=== PATIENT | male | born 1930 | race Caucasian/White ===

== ENCOUNTER 2016-07-14 10:56 | Emergency (ER) | payer OTHER ==
[~2016-07-14] VITALS: Ht 182.9 cm; Wt 73.5 kg
[~2016-07-14 10:56] MED LIST: AMIODARONE200 MG PO; BISCOLAX10 MG RC; DIGOXIN0.125 M1 PO; ELIQUIS5 MG PO; FERROUS SULFAT325 M2 PO; FLO4 PO; LOPERAMIDE2 MG PO; LOPRESSOR100 MG PO; METOPROLOL TART25 M1 PO; MILK OF MA400 MG/5 M PO; RESTORIL15 MG PO; TYLENOL325 MG PO
[2016-07-14 12:19] LABS: BASOPHIL % 0.2 % (0-2); PLATELET COUNT 372 x10^3mcL (130-400); RED CELL DISTRIBUTION WIDTH 13.7 % (11.5-14.5)
[2016-07-14 12:33] LABS: CALCIUM 8.1 mg/dL (8.5-10.1); CARBON DIOXIDE 26.9 mmol/L (21-32); CHLORIDE SERUM 102 mmol/L (98-107); CREATININE SERUM 0.8 mg/dL (0.7-1.3); GLUCOSE SERUM 123 mg/dL (74-106); SODIUM SERUM 134 mmol/L (136-145)
[2016-07-14 12:37] LABS: ALKALINE PHOSPHATASE 73 U/L (46-116); ALT/SGPT 249 U/L (16-63); AST/SGOT 173 U/L (15-37); BILIRUBIN TOTAL 0.81 mg/dL (0.20-1.00); HDL CHOLESTEROL 53 mg/dL (40-60); PHOSPHOROUS 2.1 mg/dL (2.5-4.9); TOTAL PROTEIN, SERUM 6.7 g/dL (6.4-8.2); URIC ACID 1.7 mg/dL (3.5-7.2)
[2016-07-14 12:38] LABS: ALBUMIN 2.8 g/dL (3.4-5.0); CHOLESTEROL 112 mg/dL (<200)
[2016-07-14 15:02] VITALS: BP 141/89
== END 2016-07-14 15:00 | disposition short-term general hospital (02) ==
LOC: ED 10:56
PROVIDERS: Emergency Medicine
DX: S06.300A Unspecified focal traumatic brain injury without loss of consciousness, initial encounter (principal); I11.0 Hypertensive heart disease with heart failure; I48.91 Unspecified atrial fibrillation; W18.30XA Fall on same level, unspecified, initial encounter; Y93.89 Activity, other specified; Y99.8 Other external cause status; Y92.89 Other specified places as the place of occurrence of the external cause
CPT/HCPCS: 83880; Q0092

== ENCOUNTER 2017-03-07 08:49 | Observation (INO) | payer OTHER ==
[~2017-03-07] VITALS: Ht 182.9 cm; Wt 70.3 kg
[2017-03-07 08:57] VITALS: Ht 182.9 cm; Wt 70.3 kg
[2017-03-07 10:12] LABS: BASOPHIL % 0.9 % (0-2); PLATELET COUNT 390 x10^3mcL (130-400); RED CELL DISTRIBUTION WIDTH 13.5 % (11.5-14.5)
[2017-03-07 10:21] LABS: CALCIUM 8.1 mg/dL (8.5-10.1); CARBON DIOXIDE 28.7 mmol/L (21-32); CHLORIDE SERUM 106 mmol/L (98-107); GLUCOSE SERUM 80 mg/dL (74-106); POTASSIUM SERUM 3.4 mmol/L (3.5-5.1); SODIUM SERUM 141 mmol/L (136-145)
[2017-03-07 10:25] LABS: ALKALINE PHOSPHATASE 47 U/L (46-116); ALT/SGPT 13 U/L (16-63); AST/SGOT 11 U/L (15-37); BILIRUBIN TOTAL 0.4 mg/dL (0.20-1.00); HDL CHOLESTEROL 43 mg/dL (40-60); TOTAL PROTEIN, SERUM 7.2 g/dL (6.4-8.2)
[2017-03-07 10:27] LABS: CHOLESTEROL 127 mg/dL (<200)
[2017-03-07] MEDS ORDERED: COLACE100 MG PO (11:24)
[2017-03-07] MEDS ORDERED: FLUDROCORTISON0.1 MG PO (11:24)
[2017-03-07] MEDS ORDERED: [UNRECOGNIZED DRUG - OTHER] PO (11:24)
[2017-03-07] MEDS ORDERED: FINASTERIDE5 M1 PO (11:24)
[2017-03-07] MEDS ORDERED: MIDODRINE HCL10 MG PO (11:25)
[2017-03-07] MEDS ORDERED: C500500 MG PO (11:25)
[2017-03-07] MEDS ORDERED: SULFAMETHOXAZOL1 PO1 (11:25)
[2017-03-07] MEDS ORDERED: ZOFRAN8 MG PO (11:26)
[2017-03-07] MEDS ORDERED: HYDROXYZINE50 M1 PO (11:26)
[2017-03-07] MEDS ORDERED: MECLIZINE HYDRO25 M1 PO (11:26)
[2017-03-07] MEDS ORDERED: VITAMIN-D1000 IU PO (11:26)
[2017-03-07] MEDS ORDERED: ULTRAM50 MG PO (11:27)
[2017-03-07 12:51] LABS: T3 TOTAL 0.63 ng/mL
[2017-03-07 13:04] LABS: FREE T4 1.41 ng/dL (0.76-1.46); FREE THYROXINE INDEX 3.8 ug/dL (1.4-4.5); T4(THYROXINE) 9.5 ug/dL (4.7-13.3)
[2017-03-07 13:11] VITALS: BP 140/66
[2017-03-07 13:21] LABS: MAGNESIUM 2.1 mg/dL (1.8-2.4); PHOSPHOROUS 3.3 mg/dL (2.5-4.9)
[2017-03-07 13:26] LABS: CHOLESTEROL/HDL RATIO 2.9
[2017-03-07] MEDS ORDERED: HYDROXYZINE HYD25 MG PO (13:32)
[2017-03-07 17:28] LABS: microscopic required? YES
[2017-03-07 17:30] LABS: urine erythrocyte TRACE (NEGATIVE)
[2017-03-07 17:35] VITALS: BP 133/76
[2017-03-07 20:50] VITALS: BP 137/80
[2017-03-08 05:38] VITALS: BP 151/78
[2017-03-08 08:36] VITALS: BP 107/65
[2017-03-08 12:57] VITALS: BP 136/72
[2017-03-08] MEDS ORDERED: LEVAQUIN750 MG PO (15:52)
[2017-03-08] MEDS ORDERED: LAC PO (15:53)
[2017-03-08] MEDS ORDERED: ASPIR 8181 MG PO (15:54)
[2017-03-08] MEDS ORDERED: PROTONIX20 MG PO (16:07)
[2017-03-08 16:30] VITALS: BP 136/72
== END 2017-03-08 17:35 | disposition home or self-care (01) | DRG 392 ==
LOC: ED 08:49 → DU 11:14
PROVIDERS: Emergency Medicine; Family Medicine
DX: K21.9 Gastro-esophageal reflux disease without esophagitis (principal); E44.0 Moderate protein-calorie malnutrition; N39.0 Urinary tract infection, site not specified; B96.4 Proteus (mirabilis) (morganii) as the cause of diseases classified elsewhere; G90.9 Disorder of the autonomic nervous system, unspecified; E87.6 Hypokalemia; D64.9 Anemia, unspecified; I95.9 Hypotension, unspecified; R32 Unspecified urinary incontinence; I48.2 Chronic atrial fibrillation; Z79.01 Long term (current) use of anticoagulants; Z85.46 Personal history of malignant neoplasm of prostate; Z92.3 Personal history of irradiation; Z16.12 Extended spectrum beta lactamase (ESBL) resistance; Z16.24 Resistance to multiple antibiotics
CPT/HCPCS: 83880; 84439; 87804; G0378; J0696; J7030; J7040; Q0092

== ENCOUNTER 2017-07-12 08:48 | Inpatient (IN) | payer OTHER ==
[~2017-07-12] VITALS: Ht 182.9 cm; Wt 73.6 kg
[~2017-07-12 08:48] MED LIST changes: +ASPIR 8181 MG PO; +C500500 MG PO; +COLACE100 MG PO; +FINASTERIDE5 M1 PO; +FLUDROCORTISON0.1 MG PO; +HYDROXYZINE HYD25 MG PO; +HYDROXYZINE50 M1 PO; +LAC PO; +LEVAQUIN750 MG PO; +MECLIZINE HYDRO25 M1 PO; +MIDODRINE HCL10 MG PO; +PROTONIX20 MG PO; +SULFAMETHOXAZOL1 PO1; +ULTRAM50 MG PO; +VITAMIN-D1000 IU PO; +ZOFRAN8 MG PO; +[UNRECOGNIZED DRUG - OTHER] PO
[2017-07-12 09:43] LABS: CALCIUM 8.7 mg/dL (8.5-10.1); CARBON DIOXIDE 28.1 mmol/L (21-32); CHLORIDE SERUM 100 mmol/L (98-107); CREATININE SERUM 0.9 mg/dL (0.7-1.3); GLUCOSE SERUM 98 mg/dL (74-106); POTASSIUM SERUM 3.7 mmol/L (3.5-5.1); SODIUM SERUM 135 mmol/L (136-145)
[2017-07-12 09:45] LABS: PLATELET COUNT 249 x10^3mcL (130-400); RED CELL DISTRIBUTION WIDTH 13.1 % (11.5-14.5)
[2017-07-12 09:47] LABS: BASOPHIL % 0 % (0-2)
[2017-07-12 09:48] LABS: ALBUMIN 3.9 g/dL (3.4-5.0); ALKALINE PHOSPHATASE 58 U/L (46-116); ALT/SGPT 14 U/L (16-63); AST/SGOT 19 U/L (15-37); BILIRUBIN TOTAL 0.8 mg/dL (0.20-1.00); TOTAL PROTEIN, SERUM 8.1 g/dL (6.4-8.2)
[2017-07-12] MEDS ORDERED: ARNICA120 ML (09:51)
[2017-07-12] MEDS ORDERED: PROCTOSOL-HC2.5% RC (09:51)
[2017-07-12] MEDS ORDERED: BENADRYL ALLERG25 M1 PO (09:51)
[2017-07-12] MEDS ORDERED: MUCINEX600 MG PO (09:51)
[2017-07-12] MEDS ORDERED: LOPERAMIDE1 MG/5 M1 PO (09:52)
[2017-07-12] MEDS ORDERED: APAP500 MG PO (09:52)
[2017-07-12] MEDS ORDERED: ZOF4 PO (09:52)
[2017-07-12] MEDS ORDERED: TRAMADOL HCL50 MG PO (09:52)
[2017-07-12] MEDS ORDERED: BONINE25 MG PO (09:52)
[2017-07-12 11:42] LABS: CHOLESTEROL/HDL RATIO 2.9; MAGNESIUM 2.1 mg/dL (1.8-2.4); PHOSPHOROUS 3.4 mg/dL (2.5-4.9)
[2017-07-12 11:48] LABS: T3 TOTAL 0.78 ng/mL
[2017-07-12 11:51] LABS: FREE T4 1.18 ng/dL (0.76-1.46); FREE THYROXINE INDEX 3.2 ug/dL (1.4-4.5); T4(THYROXINE) 9.3 ug/dL (4.7-13.3)
[2017-07-12 12:19] VITALS: BP 131/77
[2017-07-12 12:37] VITALS: BP 131/77
[2017-07-12 14:20] VITALS: BP 126/96
[2017-07-12 16:30] VITALS: BP 119/67
[2017-07-12 17:45] VITALS: Ht 182.9 cm; Wt 73.6 kg
[2017-07-12 20:44] VITALS: BP 119/65
[2017-07-13 05:57] VITALS: BP 145/85
[2017-07-13 06:23] LABS: CALCIUM 8.5 mg/dL (8.5-10.1); CARBON DIOXIDE 25.3 mmol/L (21-32); CHLORIDE SERUM 102 mmol/L (98-107); CREATININE SERUM 0.8 mg/dL (0.7-1.3); GLUCOSE SERUM 167 mg/dL (74-106); POTASSIUM SERUM 4.1 mmol/L (3.5-5.1); SODIUM SERUM 135 mmol/L (136-145)
[2017-07-13 06:29] LABS: BASOPHIL % 0.2 % (0-2); PLATELET COUNT 211 x10^3mcL (130-400); RED CELL DISTRIBUTION WIDTH 13.2 % (11.5-14.5)
[2017-07-13 07:52] LABS: UA SPECIFIC GRAVITY >=1.030 (1.005-1.035); microscopic required? YES; urine erythrocyte NEGATIVE (NEGATIVE)
[2017-07-13 09:30] VITALS: BP 134/62
[2017-07-13 14:14] VITALS: BP 133/71
[2017-07-13 16:53] VITALS: BP 121/65
[2017-07-13 20:45] VITALS: BP 126/63
[2017-07-14 04:10] VITALS: BP 127/70
[2017-07-14 06:08] VITALS: BP 137/76
[2017-07-14 07:00] LABS: CALCIUM 8.1 mg/dL (8.5-10.1); CHLORIDE SERUM 105 mmol/L (98-107); CREATININE SERUM 0.9 mg/dL (0.7-1.3); GLUCOSE SERUM 145 mg/dL (74-106); POTASSIUM SERUM 3.8 mmol/L (3.5-5.1); SODIUM SERUM 137 mmol/L (136-145)
[2017-07-14 08:29] LABS: PLATELET COUNT 200 x10^3mcL (130-400); RED CELL DISTRIBUTION WIDTH 13.2 % (11.5-14.5)
[2017-07-14 08:30] VITALS: BP 118/73
[2017-07-14 11:29] LABS: ATYPICAL LYMPH 2 %; BAND NEUTROPHIL 11 % (0-10); BASOPHIL 0 % (0-2); MONOCYTE 4 % (0-7); SEGMENTED NEUTROPHILS 76 % (37-75)
[2017-07-14 11:30] LABS: PLATELET MORPHOLOGY PLATELETS INCREASED; rbc morphology (normal/abnorm) NORMAL (NORMAL)
[2017-07-14 17:02] VITALS: BP 110/68
[2017-07-14 22:22] VITALS: BP 122/63
[2017-07-15 06:28] VITALS: BP 156/79
[2017-07-15 08:00] VITALS: BP 167/84
[2017-07-15 10:16] VITALS: BP 137/69
[2017-07-15 18:02] VITALS: BP 149/73
[2017-07-15 20:28] VITALS: BP 138/70
[2017-07-16 04:41] VITALS: BP 141/76
[2017-07-16 05:51] LABS: BASOPHIL % 0.2 % (0-2); PLATELET COUNT 242 x10^3mcL (130-400); RED CELL DISTRIBUTION WIDTH 13.2 % (11.5-14.5)
[2017-07-16 08:38] VITALS: BP 146/75
[2017-07-16 17:19] VITALS: BP 153/78
[2017-07-16 20:57] VITALS: BP 123/68
[2017-07-17 05:27] VITALS: BP 148/82
[2017-07-17 09:07] VITALS: BP 149/74
[2017-07-17 18:18] VITALS: BP 134/71
[2017-07-17 20:36] VITALS: BP 131/68
[2017-07-18 06:00] VITALS: BP 147/83
[2017-07-18 06:13] LABS: CARBON DIOXIDE 28.8 mmol/L (21-32); CHLORIDE SERUM 108 mmol/L (98-107); CREATININE SERUM 0.7 mg/dL (0.7-1.3); GLUCOSE SERUM 133 mg/dL (74-106); MAGNESIUM 2.5 mg/dL (1.8-2.4); PHOSPHOROUS 3.1 mg/dL (2.5-4.9); POTASSIUM SERUM 4.4 mmol/L (3.5-5.1); SODIUM SERUM 131 mmol/L (136-145)
[2017-07-18 07:09] LABS: BASOPHIL % 0.1 % (0-2); PLATELET COUNT 268 x10^3mcL (130-400)
[2017-07-18 08:28] VITALS: BP 130/80
[2017-07-18 09:18] VITALS: BP 130/80
[2017-07-18 16:30] VITALS: BP 151/75
[2017-07-18 20:19] VITALS: BP 120/67
[2017-07-19 05:59] VITALS: BP 146/88
[2017-07-19 06:45] LABS: BASOPHIL % 0.1 % (0-2); PLATELET COUNT 292 x10^3mcL (130-400)
[2017-07-19 06:51] LABS: CALCIUM 8.1 mg/dL (8.5-10.1); CARBON DIOXIDE 24.9 mmol/L (21-32); CHLORIDE SERUM 104 mmol/L (98-107); CREATININE SERUM 0.7 mg/dL (0.7-1.3); GLUCOSE SERUM 133 mg/dL (74-106); MAGNESIUM 2.4 mg/dL (1.8-2.4); PHOSPHOROUS 3.1 mg/dL (2.5-4.9); POTASSIUM SERUM 4.3 mmol/L (3.5-5.1); SODIUM SERUM 136 mmol/L (136-145)
[2017-07-19] MEDS ORDERED: LEVAQUIN750 MG PO (07:15)
[2017-07-19] MEDS ORDERED: LAC PO (07:16)
[2017-07-19 09:02] VITALS: BP 114/75
[2017-07-19 09:46] VITALS: BP 114/75
[2017-07-19] MEDS ORDERED: MEDDP PO (09:57)
== END 2017-07-19 13:08 | DRG 177 ==
LOC: ED 08:48 → MU 09:46 → DU 09:46 → MU 07-14 14:45
PROVIDERS: Emergency Medicine; Family Medicine; Family Medicine Sports Medicine
DX: J69.0 Pneumonitis due to inhalation of food and vomit (principal); J96.01 Acute respiratory failure with hypoxia; K85.90 Acute pancreatitis without necrosis or infection, unspecified; N17.0 Acute kidney failure with tubular necrosis; G93.41 Metabolic encephalopathy; G61.0 Guillain-Barre syndrome; J44.1 Chronic obstructive pulmonary disease with (acute) exacerbation; E87.1 Hypo-osmolality and hyponatremia; J44.0 Chronic obstructive pulmonary disease with (acute) lower respiratory infection; I42.9 Cardiomyopathy, unspecified; I11.0 Hypertensive heart disease with heart failure; I50.9 Heart failure, unspecified; I95.1 Orthostatic hypotension; Z22.322 Carrier or suspected carrier of Methicillin resistant Staphylococcus aureus; I48.0 Paroxysmal atrial fibrillation; J20.9 Acute bronchitis, unspecified; E83.41 Hypermagnesemia; G47.00 Insomnia, unspecified
CPT/HCPCS: 36600; 83880; 84439; 94150; 97110-GP; 97116-GP; 97530-GP; J0696; J1956; J2920; J2930; J3010; J3475; J3490; J7030; J7040; J7613; J7620; J7644; Q0092; Q0163

== ENCOUNTER 2017-09-15 19:56 | Emergency (ER) | payer OTHER ==
[~2017-09-15] VITALS: Ht 182.9 cm; Wt 78.5 kg
[~2017-09-15 19:56] MED LIST changes: +APAP500 MG PO; +ARNICA120 ML; +BENADRYL ALLERG25 M1 PO; +BONINE25 MG PO; +LOPERAMIDE1 MG/5 M1 PO; +MEDDP PO; +MUCINEX600 MG PO; +PROCTOSOL-HC2.5% RC; +TRAMADOL HCL50 MG PO; +ZOF4 PO
[2017-09-15 20:27] VITALS: Ht 182.9 cm; Wt 78.5 kg
[2017-09-15 22:52] VITALS: BP 147/79
== END 2017-09-15 22:52 | disposition home or self-care (01) ==
LOC: ED 19:56
DX: S80.11XA Contusion of right lower leg, initial encounter (principal); S50.01XA Contusion of right elbow, initial encounter; I11.0 Hypertensive heart disease with heart failure; I50.9 Heart failure, unspecified; I48.91 Unspecified atrial fibrillation; W01.0XXA Fall on same level from slipping, tripping and stumbling without subsequent striking against object, initial encounter; Y93.89 Activity, other specified; Y92.89 Other specified places as the place of occurrence of the external cause; Y99.8 Other external cause status
CPT/HCPCS: 90715

== ENCOUNTER 2018-02-19 13:51 | Inpatient (IN) | payer OTHER ==
[~2018-02-19] VITALS: Ht 182.9 cm; Wt 73.5 kg
[~2018-02-19 13:51] MED LIST changes: +BAYER ASPIRIN R81 MG PO; +BD LACTINEX1.4 MG PO; +BENADRYL ITCH103 ML TP; +GERI-LANTA355 ML PO; +LOPERAMIDE HCL2 MG PO; +MECLIZINE HYD12.5 MG PO; +PHARMASSURE VI500 MG PO; +ZYR10 PO
[2018-02-19 15:09] LABS: PLATELET COUNT 286 x10^3mcL (130-400); RED CELL DISTRIBUTION WIDTH 13.4 % (11.5-14.5)
[2018-02-19 15:13] LABS: CALCIUM 8.9 mg/dL (8.5-10.1); CARBON DIOXIDE 26.2 mmol/L (21-32); CHLORIDE SERUM 101 mmol/L (98-107); GLUCOSE SERUM 119 mg/dL (74-106); POTASSIUM SERUM 3.5 mmol/L (3.5-5.1); SODIUM SERUM 135 mmol/L (136-145)
[2018-02-19 15:17] LABS: ALKALINE PHOSPHATASE 51 U/L (46-116); ALT/SGPT 12 U/L (16-63); AST/SGOT 9 U/L (15-37); BILIRUBIN TOTAL 0.7 mg/dL (0.20-1.00); LIPASE 77 IU/L (73-393); TOTAL PROTEIN, SERUM 6.9 g/dL (6.4-8.2)
[2018-02-19 15:21] LABS: ALBUMIN 2.9 g/dL (3.4-5.0)
[2018-02-19 15:28] LABS: BAND NEUTROPHIL 2 % (0-10); BASOPHIL 0 % (0-2); MONOCYTE 6 % (0-7); PLATELET MORPHOLOGY PLATELETS DECREASED; SEGMENTED NEUTROPHILS 88 % (37-75); rbc morphology (normal/abnorm) ABNORMAL (NORMAL)
[2018-02-19 18:51] VITALS: BP 138/71
[2018-02-19 21:12] VITALS: BP 115/76
[2018-02-20 07:17] VITALS: BP 115/81
[2018-02-20 07:46] LABS: ALKALINE PHOSPHATASE 56 U/L (46-116); AST/SGOT 8 U/L (15-37); BILIRUBIN TOTAL 0.5 mg/dL (0.20-1.00); CALCIUM 7.9 mg/dL (8.5-10.1); CARBON DIOXIDE 23.8 mmol/L (21-32); CHLORIDE SERUM 104 mmol/L (98-107); CREATININE SERUM 0.8 mg/dL (0.7-1.3); GLUCOSE SERUM 103 mg/dL (74-106); POTASSIUM SERUM 3.1 mmol/L (3.5-5.1); SODIUM SERUM 137 mmol/L (136-145)
[2018-02-20 07:55] LABS: ALBUMIN 2.4 g/dL (3.4-5.0); TOTAL PROTEIN, SERUM 6.1 g/dL (6.4-8.2)
[2018-02-20 08:56] LABS: ALT/SGPT 12 U/L (16-63)
[2018-02-20 13:24] VITALS: BP 121/77
[2018-02-20 16:45] VITALS: BP 121/88
[2018-02-20 20:55] VITALS: BP 118/78
[2018-02-21 05:45] VITALS: BP 110/71
[2018-02-21 06:44] LABS: ALKALINE PHOSPHATASE 43 U/L (46-116); ALT/SGPT 11 U/L (16-63); AST/SGOT 8 U/L (15-37); BILIRUBIN TOTAL 0.3 mg/dL (0.20-1.00); CALCIUM 7.9 mg/dL (8.5-10.1); CARBON DIOXIDE 24.1 mmol/L (21-32); CHLORIDE SERUM 106 mmol/L (98-107); CREATININE SERUM 0.8 mg/dL (0.7-1.3); GLUCOSE SERUM 104 mg/dL (74-106); POTASSIUM SERUM 3.4 mmol/L (3.5-5.1); SODIUM SERUM 137 mmol/L (136-145)
[2018-02-21 06:49] LABS: ALBUMIN 2.3 g/dL (3.4-5.0); TOTAL PROTEIN, SERUM 5.7 g/dL (6.4-8.2)
[2018-02-21 10:06] VITALS: BP 11/64; BP 111/64
[2018-02-21 12:26] VITALS: BP 118/81
[2018-02-21 17:17] VITALS: BP 117/77
[2018-02-21 20:59] VITALS: BP 119/68
[2018-02-22 05:17] VITALS: BP 132/94
[2018-02-22 06:19] LABS: ALKALINE PHOSPHATASE 41 U/L (46-116); ALT/SGPT 10 U/L (16-63); AST/SGOT 6 U/L (15-37); BILIRUBIN TOTAL 0.35 mg/dL (0.20-1.00); CALCIUM 7.7 mg/dL (8.5-10.1); CARBON DIOXIDE 25.4 mmol/L (21-32); CHLORIDE SERUM 105 mmol/L (98-107); CREATININE SERUM 0.8 mg/dL (0.7-1.3); GLUCOSE SERUM 101 mg/dL (74-106); MAGNESIUM 2.1 mg/dL (1.8-2.4); POTASSIUM SERUM 3.6 mmol/L (3.5-5.1); SODIUM SERUM 131 mmol/L (136-145)
[2018-02-22 06:51] LABS: BASOPHIL % 0.5 % (0-2); PLATELET COUNT 358 x10^3mcL (130-400); RED CELL DISTRIBUTION WIDTH 12.5 % (11.5-14.5)
[2018-02-22 06:57] LABS: ALBUMIN 2.4 g/dL (3.4-5.0); TOTAL PROTEIN, SERUM 5.7 g/dL (6.4-8.2)
[2018-02-22 09:54] VITALS: BP 126/80
[2018-02-22 12:59] VITALS: BP 120/75
[2018-02-22 13:34] VITALS: Ht 182.9 cm; Wt 73.5 kg
[2018-02-22 18:38] VITALS: BP 127/87
[2018-02-22 20:48] VITALS: BP 123/79
[2018-02-23 05:39] VITALS: BP 135/73
[2018-02-23 06:12] LABS: ALKALINE PHOSPHATASE 33 U/L (46-116); ALT/SGPT 11 U/L (16-63); AST/SGOT 12 U/L (15-37); BILIRUBIN TOTAL 0.3 mg/dL (0.20-1.00); CALCIUM 8.1 mg/dL (8.5-10.1); CARBON DIOXIDE 25.6 mmol/L (21-32); CHLORIDE SERUM 105 mmol/L (98-107); CREATININE SERUM 0.8 mg/dL (0.7-1.3); GLUCOSE SERUM 101 mg/dL (74-106); POTASSIUM SERUM 4.2 mmol/L (3.5-5.1); SODIUM SERUM 138 mmol/L (136-145)
[2018-02-23 06:13] LABS: ALBUMIN 2.5 g/dL (3.4-5.0); TOTAL PROTEIN, SERUM 5.7 g/dL (6.4-8.2)
[2018-02-23 09:37] VITALS: BP 133/74
[2018-02-23 13:28] VITALS: BP 125/66
[2018-02-23 17:06] VITALS: BP 124/77
[2018-02-23 20:55] VITALS: BP 120/69
[2018-02-24 05:21] VITALS: BP 130/93
[2018-02-24 07:45] LABS: ALKALINE PHOSPHATASE 31 U/L (46-116); ALT/SGPT 16 U/L (16-63); AST/SGOT 21 U/L (15-37); BILIRUBIN TOTAL 0.3 mg/dL (0.20-1.00); CALCIUM 8.1 mg/dL (8.5-10.1); CARBON DIOXIDE 24.5 mmol/L (21-32); CHLORIDE SERUM 102 mmol/L (98-107); CREATININE SERUM 0.8 mg/dL (0.7-1.3); GLUCOSE SERUM 97 mg/dL (74-106); POTASSIUM SERUM 3.9 mmol/L (3.5-5.1); SODIUM SERUM 135 mmol/L (136-145)
[2018-02-24 07:47] LABS: ALBUMIN 2.4 g/dL (3.4-5.0); TOTAL PROTEIN, SERUM 5.8 g/dL (6.4-8.2)
[2018-02-24 09:57] VITALS: BP 106/73
[2018-02-24] MEDS ORDERED: METOPROLOL TART25 M1 PO (10:09)
[2018-02-24] MEDS ORDERED: FLA500 PO (10:10)
[2018-02-24] MEDS ORDERED: NORCO1 TA2 PO (10:54)
[2018-02-24 10:55] VITALS: BP 106/73
[2018-02-24 13:27] VITALS: BP 141/90
== END 2018-02-24 16:51 | DRG 371 ==
LOC: ED 13:51 → DU 17:08 → EDBEDREQ 17:12 → DU 18:24
PROVIDERS: Emergency Medicine; Internal Medicine; Internal Medicine Pulmonary Disease
DX: A04.9 Bacterial intestinal infection, unspecified (principal); G93.41 Metabolic encephalopathy; G61.0 Guillain-Barre syndrome; I48.91 Unspecified atrial fibrillation; E86.0 Dehydration; R54 Age-related physical debility; I11.9 Hypertensive heart disease without heart failure; I25.10 Atherosclerotic heart disease of native coronary artery without angina pectoris; G62.9 Polyneuropathy, unspecified; K80.20 Calculus of gallbladder without cholecystitis without obstruction; K76.9 Liver disease, unspecified; Z68.22 Body mass index [BMI] 22.0-22.9, adult; Z79.01 Long term (current) use of anticoagulants
CPT/HCPCS: 87046; 87046-59; 97110-GP; 97116-GP; 97530-GP; J1160; J1644; J1956; J2405; J2543; J3490; J7030; J7040; Q0092